=== PATIENT | female | born 1985 | race Caucasian/White ===

== ENCOUNTER 2020-06-16 14:55 | Inpatient (IN) | payer OTHER | END 2020-08-20 09:21 | disposition home or self-care (01) | DRG 203 | LOC: CLINIC 14:55 → EDSTATUS 08-01 16:58 → MEDJ 08-19 14:25 → OB/GYN 08-19 14:25 | DX: J45.901 Unspecified asthma with (acute) exacerbation (principal); D64.9 Anemia, unspecified ==